=== PATIENT | male | born 1995 | race Two or more races ===

== ENCOUNTER 2021-06-09 09:30 | Emergency (ER) | payer BC, OTHER ==
[~2021-06-09] VITALS: Ht 172.7 cm; Wt 86.2 kg
[2021-06-09 14:20] VITALS: BP 124/78
== END 2021-06-09 14:45 | disposition home or self-care (01) ==
LOC: ER 09:30
DX: U07.1 COVID-19 (principal); J06.9 Acute upper respiratory infection, unspecified
CPT/HCPCS: 36415; 71046; 87426